=== PATIENT | female | born 1990 ===

== ENCOUNTER 2016-11-07 08:11 | Emergency (ER) | payer OTHER ==
[2016-11-07 08:24] VITALS: RESP 18; O2SAT 100
--- NOTE | 2016-11-07 08:35 | C.PDOC ---
History Of Present Illness 26 yr old female presents to the ER with complaints of pelvic pain for the past several days. Patient also reports of left lower back pain but state it is not associated with movement. Patient denies nausea, vomiting, abdominal pain, diarrhea, dysuria, incontinence, vaginal discharge, vaginal bleeding, weakness or numbness. PELVIC PAIN X SEV DAYS. +L LOWER BACK PAIN NO ASSOC W MOVEMENT. NO OTHER ASSOC SX LMP 11/03 EXAM NAD NONTOXIC ABD +PELVIC/SUPRAPUB TEND SOFT NO R/G NO CVAT REMAINDER NEG Time Seen by Provider: 11/07/16 08:31 Chief Complaint (Nursing): Female Genitourinary History Per: Patient History/Exam Limitations: no limitations Onset/Duration Of Symptoms: Days Current Symptoms Are (Timing): Still Present Past Medical History Reviewed: Historical Data, Nursing Documentation, Vital Signs Vital Signs: Last Vital Signs Temp 98.3 F 11/07/16 08:18 Pulse 83 11/07/16 08:18 Resp 18 11/07/16 08:18 BP 104/65 11/07/16 08:18 Pulse Ox 100 11/07/16 09:36 Family History: States: No Known Family Hx - Social History Hx Alcohol Use: No Hx Substance Use: No - Immunization History Hx Tetanus Toxoid Vaccination: No Hx Influenza Vaccination: No Hx Pneumococcal Vaccination: No Review Of Systems Except As Marked, All Systems Reviewed And Found Negative. Gastrointestinal: Negative for: Nausea, Vomiting, Abdominal Pain, Diarrhea Genitourinary: Positive for: Pelvic Pain. Negative for: Dysuria, Incontinence, Vaginal Discharge, Vaginal Bleeding Musculoskeletal: Positive for: Back Pain (Lower) Neurological: Negative for: Weakness, Numbness Physical Exam - Physical Exam Appears: Non-toxic, No Acute Distress Skin: Warm, Dry Head: Atraumatic, Normacephalic Oral Mucosa: Moist Cardiovascular: Rhythm Regular, No Murmur Respiratory: Normal Breath Sounds, No Rales, No Rhonchi, No Stridor, No Wheezing Gastrointestinal/Abdominal: Soft, Tenderness (Pelvic/Superpubic tenderness), No Guarding, No Rebound Back: Normal Inspection, No CVA Tenderness Extremity: Normal ROM, No Swelling Neurological/Psych: Oriented x3, Normal Speech, Normal Motor, Normal Sensation ED Course And Treatment O2 Sat by Pulse Oximetry: 100 (RA) Pulse Ox Interpretation: Normal Progress - Data Reviewed Data Reviewed: Lab, Old records Medical Decision Making Medical Decision Making: PLAN: * POC * Urinalysis Disposition Counseled Patient/Family Regarding: Studies Performed, Diagnosis, Need For Followup, Rx Given - Disposition Referrals: [facility] [Outside] [facility] [Outside] Disposition: HOME/ ROUTINE Disposition Time: 09:35 Condition: GOOD Prescriptions: Ibuprofen [Motrin] 600 mg PO Q6 #30 tab Nitrofurantoin Macrocrystals [Macrobid] 1 cap PO BID #14 cap Phenazopyridine HCl [Pyridium] 200 mg PO BID #6 tablet Instructions: Urinary Tract Infection in Women (ED) Forms: [employer] (Congolese) Print Language: OCCITAN - Clinical Impression Clinical Impression: UTI (urinary tract infection) - Scribe Statement The provider has reviewed the documentation as recorded by the Amanda Núñez Provider Attestation: All medical record entries made by the Taoibcelina were at my direction and personally dictated by me. I have reviewed the chart and agree that the record accurately reflects my personal performance of the history, physical exam, medical decision making, and the department course for this patient. I have also personally directed, reviewed, and agree with the discharge instructions and disposition.
[2016-11-07 08:52] LABS: RBC URINE 3 /hpf (0-3); URINE BACTERIA RARE (<OCC); URINE BILIRUBIN NEGATIVE (NEGATIVE); URINE BLOOD 1+ (NEGATIVE); URINE COLOR Yellow (YELLOW); URINE GLUCOSE (UA) NORMAL (Normal); URINE KETONE NEGATIVE (NEGATIVE); URINE LEUKOCYTE ESTERASE 3+ Leu/uL (Negative); URINE PROTEIN NEGATIVE (NEGATIVE); URINE UROBILINOGEN NORMAL mg/dL (0.2-1.0); WBC URINE 13 /hpf (0-5)
[2016-11-07 09:50] VITALS: BP 102/66; PULSE 76; TEMP 98.2
== END 2016-11-07 09:50 | disposition home or self-care (01) ==
LOC: C.ER 08:11
DX: N39.0 Urinary tract infection, site not specified (principal)

== ENCOUNTER 2017-02-27 16:36 | Emergency (ER) | payer OTHER ==
[2017-02-27 17:01] VITALS: BMI 24.3
[2017-02-27 17:04] VITALS: TEMP 98.6; O2SAT 99
[2017-02-27] MEDS ORDERED: Naproxen 550 mg Tab PO STA (17:55)
[2017-02-27] MEDS ORDERED: Naproxen 550 mg Tab PO ONE (18:02)
--- NOTE | 2017-02-27 18:18 | RAD ---
HISTORY: persistent cough COMPARISON: None available. TECHNIQUE: Chest PA and lateral FINDINGS: LUNGS: No focal consolidation. Please note that chest x-ray has limited sensitivity for the detection of pulmonary masses. PLEURA: No significant pleural effusion identified. No definite pneumothorax . CARDIOVASCULAR: The cardiomediastinal silhouette appears within normal limits of size. OSSEOUS STRUCTURES: No acute osseous abnormality identified. VISUALIZED UPPER ABDOMEN: Unremarkable. OTHER FINDINGS: None. IMPRESSION: No focal consolidation, significant pleural effusion, or definite pneumothorax identified.
--- NOTE | 2017-02-27 18:38 | C.PDOC ---
History Of Present Illness Patient presents to ED c/o body aches, productive cough, chills, headache for approx 1 week. She denies SOB, chest pain, abdominal pain, nausea/vomiting/ diarrhea, dysuria. Time Seen by Provider: 02/27/17 17:22 Chief Complaint (Nursing): Flu-like Symptoms History Per: Patient History/Exam Limitations: no limitations Onset/Duration Of Symptoms: Days (1 week) Current Symptoms Are (Timing): Still Present Associated Symptoms: Chills, Cough, Myalgias Severity: Mild Past Medical History Reviewed: Historical Data, Nursing Documentation, Vital Signs Vital Signs: Last Vital Signs Temp 98.6 F 02/27/17 17:01 Pulse 89 02/27/17 17:01 Resp 16 02/27/17 17:01 BP 105/69 02/27/17 17:01 Pulse Ox 99 02/27/17 17:01 - Medical History PMH: No Chronic Diseases Family History: States: No Known Family Hx - Social History Hx Alcohol Use: No Hx Substance Use: No - Immunization History Hx Tetanus Toxoid Vaccination: No Hx Influenza Vaccination: No Hx Pneumococcal Vaccination: No Review Of Systems Except As Marked, All Systems Reviewed And Found Negative. Constitutional: Positive for: Chills Cardiovascular: Negative for: Chest Pain, Palpitations Respiratory: Positive for: Cough. Negative for: Shortness of Breath Gastrointestinal: Negative for: Nausea, Vomiting, Abdominal Pain, Diarrhea Genitourinary: Negative for: Dysuria, Hematuria Physical Exam - Physical Exam Appears: Well, Non-toxic, No Acute Distress Skin: Normal Color, Warm, Dry, No Rash Oral Mucosa: Moist Throat: Normal, No Erythema, No Exudate Cardiovascular: Rhythm Regular Respiratory: Normal Breath Sounds, No Rales, No Rhonchi, No Wheezing Neurological/Psych: Oriented x3 ED Course And Treatment O2 Sat by Pulse Oximetry: 99 (RA) Pulse Ox Interpretation: Normal Progress Note: CXR ordered and reviewed. Patient given PO Naprosyn. Disposition Counseled Patient/Family Regarding: Studies Performed, Diagnosis, Need For Followup, Rx Given - Disposition Referrals: [facility] [Outside] Disposition: HOME/ ROUTINE Disposition Time: 18:40 Condition: STABLE Additional Instructions: SEGUIMIENTO CON MAHER MDICO / CLNICA EN 1-2 TAN USE MEDICAMENTOS SEGN LO INDICADO BEBER MUCHO LQUIDO REGRESE AL JULISSA DE EMERGENCIA SI LOS SNTOMAS EMPEORAN Prescriptions: Benzonatate [Tessalon Perles] 100 mg PO BID PRN #15 sgl PRN Reason: Cough Naproxen 375 mg PO BID PRN #20 tablet PRN Reason: pain Instructions: Viral Syndrome (ED), Upper Respiratory Infection (ED) Print Language: SOUTH AFRICAN - Clinical Impression Clinical Impression: Viral upper respiratory infection
[2017-02-27 18:48] VITALS: BP 99/65; PULSE 79; RESP 18
== END 2017-02-27 18:50 | disposition home or self-care (01) ==
LOC: C.ER 16:36
DX: J06.9 Acute upper respiratory infection, unspecified (principal)

== ENCOUNTER 2017-06-04 11:35 | Emergency (ER) | payer OTHER ==
[2017-06-04 11:35] VITALS: BMI 24.3
[2017-06-04 11:51] VITALS: RESP 18
[2017-06-04 13:28] LABS: SQUAMOUS EPITHIAL 1 /hpf (0-5); URINE BACTERIA RARE (<OCC); URINE BILIRUBIN NEGATIVE (NEGATIVE); URINE BLOOD NEGATIVE (NEGATIVE); URINE CLARITY Clear (Clear); URINE COLOR Yellow (YELLOW); URINE GLUCOSE (UA) NORMAL (Normal); URINE LEUKOCYTE ESTERASE NEG Leu/uL (Negative); URINE PROTEIN NEGATIVE (NEGATIVE); URINE UROBILINOGEN NORMAL mg/dL (0.2-1.0)
--- NOTE | 2017-06-04 13:52 | C.PDOC ---
History Of Present Illness 27 y/o female presents to ED with c/o of low abdominal pain and breast pain associated with white d/c from nipple for 1 week. Patient states abdominal pain is worse when walking or standing and reports no improvement with Ibuprofen. Patient denies fever, chills, n/v/d, dysuria, vaginal bleeding or any other complaints at this time. LMP 04/16/17 Time Seen by Provider: 06/04/17 11:53 Chief Complaint (Nursing): Breast Problem History Per: Patient History/Exam Limitations: no limitations Onset/Duration Of Symptoms: Days Current Symptoms Are (Timing): Still Present Past Medical History Reviewed: Historical Data, Nursing Documentation, Vital Signs Vital Signs: Last Vital Signs Temp 9834 F H 06/04/17 15:29 Pulse 84 06/04/17 15:29 Resp 18 06/04/17 15:29 BP 108/69 06/04/17 15:29 Pulse Ox 99 06/05/17 13:43 - Medical History PMH: No Chronic Diseases Surgical History: No Surg Hx Family History: States: No Known Family Hx - Social History Hx Alcohol Use: No Hx Substance Use: No - Immunization History Hx Tetanus Toxoid Vaccination: No Hx Influenza Vaccination: Yes (5 months ago) Hx Pneumococcal Vaccination: No Review Of Systems Constitutional: Negative for: Fever, Chills Gastrointestinal: Positive for: Abdominal Pain. Negative for: Nausea, Vomiting , Diarrhea Genitourinary: Negative for: Dysuria, Vaginal Bleeding Skin: Negative for: Rash Physical Exam - Physical Exam Appears: Non-toxic, No Acute Distress Skin: Warm, Dry, No Rash Head: Atraumatic, Normacephalic Eye(s): bilateral: Normal Inspection Tongue: Swelling Neck: Normal ROM, Supple Chest: Other (minimal white discharge from right nipple when squeezed. No discharge noted from left nipple) Cardiovascular: Rhythm Regular Respiratory: Normal Breath Sounds, No Rales, No Rhonchi, No Wheezing Gastrointestinal/Abdominal: Soft, No Tenderness, No Guarding, No Rebound Pelvic: Normal External Exam, Normal Bimanual Exam, No Cervical Motion Tenderness, No Adnexal Tenderness Extremity: Normal ROM, Capillary Refill (<2 seconds) Neurological/Psych: Oriented x3, Normal Speech, Normal Cognition ED Course And Treatment - Laboratory Results Result Diagrams: 06/04/17 14:18 06/04/17 14:18 O2 Sat by Pulse Oximetry: 99 (RA) Pulse Ox Interpretation: Normal Medical Decision Making Medical Decision Making: Plan: Blood work, UA, Pelvic Exam Progress: POC urine Preg (-) pt with non tender abdomen, normal bimanual exam, scant nipple discharge. will d /c, advised to follow up in medical clinic, get prolactin level. pt understands. Disposition Counseled Patient/Family Regarding: Diagnosis, Need For Followup - Disposition Referrals: [facility] [Outside] Disposition: HOME/ ROUTINE Disposition Time: 15:39 Condition: IMPROVED Additional Instructions: Por favor jose f un seguimiento en la clnica mdica; se recomienda que obtenga un nivel de prolactina cuando vaya a la clnica para raul evaluacin adicional de la descarga de los pezones. Regrese a la tabatha de emergencias por cualquier s ntoma peor. Please follow up in medical clinic; it is recommended that you get a prolactin level when you go to clinic for further evaluation of discharge from nipples. Return to ER for any worse symptoms. Instructions: Common Breast Problems Forms: [employer] (Norwegian) Print Language: ARABIC - Clinical Impression Clinical Impression: Bilateral nipple discharge - PA / EVENT HOST / Resident Statement MD/DO has reviewed & agrees with the documentation as recorded. - Scribe Statement The provider has reviewed the documentation as recorded by the Taoibcelina Guillen All medical record entries made by the Scribe were at my direction and personally dictated by me. I have reviewed the chart and agree that the record accurately reflects my personal performance of the history, physical exam, medical decision making, and the department course for this patient. I have also personally directed, reviewed, and agree with the discharge instructions and disposition.
[2017-06-04 14:22] LABS: BASO % 0.5 % (0.0-2.0); EOS # 0.2 K/uL (0.0-0.7); EOS % 2.2 % (0.0-4.0); HEMOGLOBIN 12.5 g/dL (11.0-16.0); LYMPH # 2.3 K/uL (1.0-4.3); MEAN CELL VOLUME 83.2 fL (81.0-99.0); MEAN CORPUSCULAR HEMOGLOBIN 28.3 pg (27.0-31.0); MEAN PLATELET VOLUME 8.6 fL (7.2-11.7); MONO # 0.5 K/uL (0.0-0.8); MONO % 5.9 % (0.0-10.0); NEUT # 5.9 K/uL (1.8-7.0); NEUT % 65.4 % (50.0-75.0); RBC 4.41 Mil/uL (3.80-5.20); RED CELL DISTRIBUTION WIDTH 14.5 % (11.5-14.5)
[2017-06-04 14:38] LABS: ALB/GLOB RATIO 1.2 (1.0-2.1); ALBUMIN 4.3 g/dL (3.5-5.0); ALT/SGPT 9 U/L (9-52); AST/SGOT 22 U/L (14-36); BLOOD UREA NITROGEN 14 mg/dL (7-17); CALCIUM 8.9 mg/dl (8.6-10.4); GFR AFRICAN-AMERICAN > 60; GFR NON-AFRICAN AMERICAN > 60
[2017-06-04 15:30] VITALS: BP 108/69; PULSE 84; TEMP 9834
[2017-06-04 15:38] VITALS: O2SAT 99
--- NOTE | 2017-06-05 21:54 | CARD ---
APPROVED REPORT EKG Measurement Heart [id number] <Conclusion> Normal sinus rhythm with sinus arrhythmia Normal ECG
== END 2017-06-04 16:01 | disposition home or self-care (01) ==
LOC: C.ER 11:35
DX: N64.52 Nipple discharge (principal)